=== PATIENT | male | born 1985 | race African-American/Black ===

== ENCOUNTER 2017-02-15 10:26 | Inpatient (IN) | payer OTHER ==
[2017-02-15 13:05] VITALS: BMI 19.1
--- NOTE | 2017-02-15 13:37 | HP ---
CIWA Score - CIWA Score Nausea/Vomitin Muscle Tremors: 3 Anxiety: 3 Agitation: 3 Paroxysmal Sweats: 3 Orientation: 0-Oriented Tacttile Disturbances: 1-Very Mild Itch/Numbness Auditory Disturbances: 0-None Visual Disturbances: 0-None Headache: 1-Very Mild CIWA-Ar Total Score: 17 Admission ROS S - [facility] Chief Complaint: alcohol withdrawal sx Allergies/Adverse Reactions: Allergies Allergy/AdvReac Type Severity Reaction Status Date / Time Penicillins Allergy Severe Swelling Verified 02/15/17 13:02 History of Present Illness: 32 yo m with h/o polysubstance use admitted for inpateitn detoxification because of alcohol withdrawal sx when he does not use. Exam Limitations: No Limitations - Ebola screening Have you traveled outside of the country in the last 21 days: No (N) Have you had contact with anyone from an Ebola affected area: No Have you been sick,other than usual withdrawal symptoms: No Do you have a fever: No - Review of Systems Constitutional: Diaphoresis, Night Sweats, Changes in sleep, Weakness, Unintentional Wgt. Loss EENT: reports: No Symptoms Reported Respiratory: reports: No Symptoms reported Cardiac: reports: No Symptoms Reported GI: reports: Diarrhea, Nausea, Poor Appetite, Poor Fluid Intake, Vomiting, Indigestion, Abdominal cramping : reports: No Symptoms Reported Integumentary: reports: Flushing, Sweating Neuro: reports: Headache, Numbness, Tingling, Tremors Endocrine: reports: Excessive Sweating, Flushing, Increased Thirst Hematology: reports: No Symptoms Reported Psychiatric: reports: Judgement Intact, Mood/Affect Appropiate, Orientated x3, Anxious, Depressed Other Systems: Reviewed and Negative Patient History - Patient Medical History Hx Anemia: No Hx Asthma: No Hx Chronic Obstructive Pulmonary Disease (COPD): No Hx Cancer: No Hx Cardiac Disorders: No Hx Congestive Heart Failure: No Hx Hypertension: No Hx Hypercholesterolemia: No Hx Pacemaker: No HX Cerebrovascular Accident: No Hx Seizures: No Hx Dementia: No Hx Diabetes: No Hx Gastrointestinal Disorders: No Hx Liver Disease: No Hx Genitourinary Disorders: No Hx Sexually Transmitted Disorders: No Hx Renal Disease (ESRD): No Hx Thyroid Disease: No Hx Human Immunodeficiency Virus (HIV): No Hx Hepatitis C: No Hx Depression: Yes (no meds) Hx Suicide Attempt: No (no si at this tiem) Hx Bipolar Disorder: No Hx Schizophrenia: No - Patient Surgical History Past Surgical History: No Hx Neurologic Surgery: No Hx Cataract Extraction: No Hx Cardiac Surgery: No Hx Lung Surgery: No Hx Breast Biopsy: No Hx Abdominal Surgery: No Hx Appendectomy: No Hx Cholecystectomy: No Hx Genitourinary Surgery: No Hx Section: No Hx Orthopedic Surgery: No Hx Hysterectomy: No Anesthesia Reaction: No - PPD History Previous Implant?: Yes Documented Results: Negative w/o proof Implanted On Prior [facility] Admission?: No PPD to be Administered?: Yes - Reproductive History Patient is a Female of Child Bearing Age (11 -55 yrs old): No Patient : No - Smoking Cessation Smoking history: Current every day smoker Aproximately how many cigarettes per day: 5 Cigars Per Day: 0 Hx Chewing Tobacco Use: No Initiated information on smoking cessation: No 'Breaking Loose' booklet given: 02/15/17 - Substance & Tx. History Hx Alcohol Use: Yes Hx Substance Use: Yes Substance Use Type: Alcohol, Cocaine, Marijuana Hx Substance Use Treatment: No (first admission to [facility]) - Substances Abused Alcohol Route: Oral Frequency: Daily Amount used: 2 beers, 1/2 pint of sara, 1/2 pint rum Age of first use: 18 Date of Last Use: 02/14/17 Cocaine Route: Smoking Frequency: Daily Amount used: $200 Age of first use: 17 Date of Last Use: 02/15/17 Marijuana/Hashish Route: Smoking Frequency: 1-2 times per week Amount used: $5 Age of first use: 14 Date of Last Use: 02/13/17 Family Disease History - Family Disease History Family History: Denies Admission Physical Exam S - Vital Signs Vital Signs: Vital Signs - 24 hr 02/15/17 13:04 Temperature 97.9 F Pulse Rate 80 Respiratory 18 Rate Blood Pressure 103/60 - Physical General Appearance: Yes: Nourished, Appropriately Dressed, Disheveled, Mild Distress, Thin, Tremorous, Irritable, Sweating, Anxious HEENTM: Yes: Within Normal Limits, EOMI, Hearing grossly Normal, Normal ENT Inspection, Normocephalic, Normal Voice, EMRE, Pharynx Normal Respiratory: Yes: Within Normal Limits, Chest Non-Tender, Lungs Clear, Normal Breath Sounds, No Respiratory Distress, No Accessory Muscle Use Neck: Yes: Within Normal Limits, No masses,lesions,Nodules, Supple, Trachea in good position Breast: Yes: Breast Exam Deferred Cardiology: Yes: Within Normal Limits, Regular Rhythm, Regular Rate, S1, S2 Abdominal: Yes: Within Normal Limits, Normal Bowel Sounds, Non Tender, Flat, Increased Bowel Sounds Genitourinary: Yes: Within Normal Limits Back: Yes: Within Normal Limits, Normal Inspection Musculoskeletal: Yes: Within Normal Limits, full range of Motion, Gait Steady, Pelvis Stable Extremities: Yes: Normal Capillary Refill, Normal Range of Motion, Non-Tender, Tremors Neurological: Yes: aircraft time [employer] II-XII NML intact, Fully Oriented, Alert, Motor Strength 5/5, Normal Response, Depressed Affect Integumentary: Yes: Normal Color, Warm, Diaphoresis, Moist Lymphatic: Yes: Within Normal Limits - Addiitonal Findings: withdrawal sx - Diagnostic (1) Alcohol dependence with uncomplicated withdrawal Current Visit: Yes Status: Acute (2) Cannabis dependence Current Visit: Yes Status: Acute (3) Cocaine dependence Current Visit: Yes Status: Acute (4) Dehydration Current Visit: Yes Status: Acute (5) Depression Current Visit: Yes Status: Acute (6) Nicotine dependence Current Visit: Yes Status: Acute Cleared for Admission [facility] - Detox or Rehab [facility] Level of Care: Medically Managed Detox Regimen/Protocol: Librium [facility] Breath Alcohol Content Breath Alcohol Content: 0 Urine Drug Screen - Results Drug Screen Negative: No Urine Drug Screen Results: ROSS-Cocaine
[2017-02-15] MEDS ORDERED: ACETAMINOPHEN 325 MG TABLET (FP) PO PRN (13:43)
[2017-02-15] MEDS ORDERED: MAG HYDROX/AL HYDROX/SIMETH 30 ML UNIT-DOSE CUP PO PRN (13:43)
[2017-02-15] MEDS ORDERED: MENTHOL/PHENOL 1 EACH UD MM PRN (13:43)
[2017-02-15] MEDS ORDERED: MAGNESIUM HYDROX 2400MG/30ML ORAL SUSPENSION 30 ML CUP PO PRN (13:43)
[2017-02-15] MEDS ORDERED: P-EPHED 60MG/TRIPROLIDI 2.5MG TABLET PO PRN (13:43)
[2017-02-15] MEDS ORDERED: chlordiazePOXIDE HCL 25 MG CAPSULE PO PRN (13:43)
[2017-02-15] MEDS ORDERED: IBUPROFEN 400 MG TABLET (FP) PO PRN (13:43)
[2017-02-15] MEDS ORDERED: hydrOXYzine PAMOATE 50 MG CAPSULE (FP) PO PRN (13:43)
[2017-02-15] MEDS ORDERED: NICOTINE POLACRILEX 2 MG GUM BUC PRN (13:43)
[2017-02-15] MEDS ORDERED: guaiFENesin/D-METHORPHAN HB 10 ML UNIT-DOSE CUPS PO PRN (13:43)
[2017-02-15] MEDS ORDERED: MAGNESIUM CITRATE 300 ML BOTTLE PO PRN (13:43)
[2017-02-15] MEDS ORDERED: LOPERAMIDE HCL 2 MG CAPSULE PO PRN (13:43)
[2017-02-15] MEDS: NICOTINE 14 MG/24 HOURS TOPICAL PATCH TD SCH (15:42)
[2017-02-15 19:41] LABS: URINE APPEARANCE SLCLOUDY; URINE BILIRUBIN NEGATIVE (NEGATIVE); URINE BLOOD NEGATIVE (NEGATIVE); URINE COLOR YELLOW; URINE GLUCOSE (UA) NEGATIVE (NEGATIVE); URINE KETONE NEGATIVE (NEGATIVE); URINE LEUK ESTERASE TRACE (NEGATIVE); URINE NITRITE NEGATIVE (NEGATIVE); URINE PROTEIN NEGATIVE (NEGATIVE)
[2017-02-15 20:05] LABS: URINE MUCUS RARE; URINE RBC 6 /hpf (0-3); URINE WBC 7 /hpf (3-5)
[2017-02-15] MEDS: THIAMINE HCL 100 MG TABLET (FP) PO SCH (22:19)
[2017-02-15] MEDS: chlordiazePOXIDE HCL 25 MG CAPSULE PO SCH ×2 (22:20)
[2017-02-15 22:37] LABS: URINE LEUK ESTERASE Negative (NEGATIVE)
[2017-02-16] MEDS: chlordiazePOXIDE HCL 25 MG CAPSULE PO SCH ×4 (05:19→23:48)
[2017-02-16 09:49] LABS: MCH 26.4 pg (25.7-33.7); MCHC 30.7 g/dl (32.0-35.9); MEAN CELL VOLUME 85.8 fl (80-96); PLATELET COUNT 226 K/MM3 (134-434); WHITE BLOOD COUNT 4.8 K/mm3 (4.0-10.0)
[2017-02-16] MEDS ORDERED: PRENATAL VITAMINS W/ FOLIC ACID TABLET (FP) PO SCH (10:00)
[2017-02-16 10:09] LABS: ALBUMIN 2.6 g/dl (3.4-5.0); ALK PHOS 83 U/L (45-117); ANION GAP 7 (8-16); BILIRUBIN,TOTAL 0.2 mg/dL (0.2-1.0); CALCIUM 7.9 mg/dL (8.5-10.1); CO2 25 mmol/L (21-32); CREATININE 0.9 mg/dL (0.7-1.3); GLUCOSE,RANDOM 92 mg/dL (74-106); SGPT/ALT 19 U/L (12-78); TOT PROT 6.8 g/dl (6.4-8.2)
--- NOTE | 2017-02-16 10:14 | CONSULT ---
[facility] Psychiatric Consult - Data Date of interview: 02/16/17 Admission source: [facility] Identifying data: Pt. is a 32 year old male. This is patient's first admission to [facility]. Pt. admitted to for cocaine, marijuana, and alcohol dependence. Substance Abuse History: Following information confirmed with Mr. Robles: Smoking Cessation. Smoking history: Current every day smoker. Aproximately how many cigarettes per day: 5. Cigars Per Day: 0. - Substance & Tx. History. Hx Alcohol Use: Yes. Hx Substance Use: Yes. Substance Use Type: Alcohol, Cocaine, Marijuana. Hx Substance Use Treatment: No (first admission to [facility]). Alcohol- Route: Oral Frequency: Daily. Amount used: 2 beers, 1/ 2 pint of sara, 1/2 pint rum. Age of first use: 18 Date of Last Use: 02/14. Cocaine- Route: Smoking Frequency: Daily. Amount used: $200 Age of first use: 17. Date of Last Use: 02/15/17. Marijuana/Hashish- Route: Smoking Frequency: 1-2 times per week. Amount used: $5 Age of first use: 14. Date of Last Use: 02/13/17 Medical History: Pt. denies. Psychiatric History: Pt. reports h/o one psychiatric hospitalization in 2016 at [facility] for suicidal ideation and reports being evaluated by a psychiatrist at [facility] 2 weeks ago but was discharged. Pt. unable to recall which medication he was taking while at [facility]. Pt. also denies taking any psychiatric medications. Pt. minimizing his psychiatric history. Pt. denies h/o suicide attempts. Pt. also stated to ad writer, " I do not need any psych medications. I'm not taking anything." Pt. currently denies suicidal and homicidal ideation. Physical/Sexual Abuse/Trauma History: Pt. did not answer this question. Additional Comment: Urine Drug Screen Results: ORSS-Cocaine Mental Status Exam - Mental Status Exam Alert and Oriented to: Time, Place, Person Cognitive Function: Fair Patient Appearance: Unkempt Mood: Withdrawn, Irritable Affect: Mood Congruent Patient Behavior: Guarded, Suspicious Speech Pattern: Clear Voice Loudness: Normal Thought Process: Goal Oriented Thought Disorder: Not Present Hallucinations: Denies Suicidal Ideation: Denies Homicidal Ideation: Denies Insight/Judgement: Poor Sleep: Fair Appetite: Fair Muscle strength/Tone: Normal Gait/Station: Normal Psychiatric Findings - Problem List ([place] 1, 2,3) (1) Alcohol dependence with uncomplicated withdrawal Current Visit: Yes Status: Acute (2) Cocaine dependence Current Visit: Yes Status: Chronic (3) Cannabis dependence Current Visit: Yes Status: Chronic (4) Nicotine dependence Current Visit: Yes Status: Chronic (5) Substance induced mood disorder Current Visit: No Status: Suspected - Initial Treatment Plan Initial Treatment Plan: Detox in progress. Pt. refusing psychotrophic medications. Will continue to monitor.
[2017-02-16 10:16] LABS: SGOT/AST 15 U/L (15-37)
[2017-02-16] MEDS: NICOTINE 14 MG/24 HOURS TOPICAL PATCH TD SCH (10:41)
--- NOTE | 2017-02-16 13:20 | EKG ---
Test Reason : Blood Pressure : / mmHG Vent. Rate : 071 BPM Atrial Rate : 071 BPM P-R Int : 152 ms QRS Dur : 090 ms QT Int : 414 ms P-R-T Axes : 068 076 057 degrees QTc Int : 449 ms SINUS RHYTHM WITH MARKED SINUS ARRHYTHMIA OTHERWISE NORMAL ECG NO PREVIOUS ECGS AVAILABLE Confirmed by MD Jhoan, Chan ([id number]) on 02/16/2017 1:20:42 PM Referred By: ' Confirmed By:Chan Staples MD
--- NOTE | 2017-02-16 14:23 | PN ---
S CIWA - CIWA Score Nausea/Vomitin Muscle Tremors: 3 Anxiety: 3 Agitation: 3 Paroxysmal Sweats: 3 Orientation: 0-Oriented Tacttile Disturbances: 1-Very Mild Itch/Numbness Auditory Disturbances: 0-None Visual Disturbances: 0-None Headache: 2-Mild CIWA-Ar Total Score: 18 S Progress Note (SOAP) Subjective: Nausea, sweating, tremor, chills, anxious Objective: 02/16/17 14:21 Last Vital Signs Temp Pulse Resp BP Pulse Ox 99.3 F 109 H 20 130/72 02/16/17 14:02 02/16/17 14:02 02/16/17 14:02 02/16/17 14:02 Laboratory Tests 02/15/17 02/16/17 02/16/17 19:00 06:00 06:00 WBC 4.8 RBC 4.58 Hgb 12.1 Hct 39.3 MCV 85.8 MCH 26.4 MCHC 30.7 L RDW 15.0 MPV 9.0 Sodium 140 Potassium 4.1 Chloride 108 H Carbon Dioxide 25 Anion Gap 7 L BUN 14 Creatinine 0.9 Creat Clearance w eGFR > 60 Random Glucose 92 Calcium 7.9 L Total Bilirubin 0.2 AST 15 ALT 19 Alkaline Phosphatase 83 Total Protein 6.8 Albumin 2.6 L Urine Color Yellow Urine Appearance Slcloudy Urine pH 6.0 Ur Specific [place] 1.032 Urine Protein Negative Urine Glucose (UA) Negative Urine Ketones Negative Urine Blood Negative Urine Nitrite Negative Urine Bilirubin Negative Urine Urobilinogen 2.0 Ur Leukocyte Esterase Negative Urine WBC (Auto) 7 Urine RBC (Auto) 6 Ur Epithelial Cells Rare Urine Mucus Rare RPR Titer 02/16/17 06:00 WBC RBC Hgb Hct MCV MCH MCHC RDW MPV Sodium Potassium Chloride Carbon Dioxide Anion Gap BUN Creatinine Creat Clearance w eGFR Random Glucose Calcium Total Bilirubin AST ALT Alkaline Phosphatase Total Protein Albumin Urine Color Urine Appearance Urine pH Ur Specific [place] Urine Protein Urine Glucose (UA) Urine Ketones Urine Blood Urine Nitrite Urine Bilirubin Urine Urobilinogen Ur Leukocyte Esterase Urine WBC (Auto) Urine RBC (Auto) Ur Epithelial Cells Urine Mucus RPR Titer Nonreactive Labs noted Assessment: 02/16/17 14:22 Withdrawal symptoms Plan: Continue detox Encouraged to drink lots of water
[2017-02-16 15:38] LABS: PLATELET COMMENTS NO CLUMPING NOTED
[2017-02-16] MEDS: THIAMINE HCL 100 MG TABLET (FP) PO SCH (23:48)
[2017-02-17] MEDS: chlordiazePOXIDE HCL 25 MG CAPSULE PO SCH (05:54)
--- NOTE | 2017-02-17 08:16 | PN ---
[facility] Progress Note Note: Patient has been refusing medication, does not want to complete detox, adivsed of risks of not completing as orderd, will sign out AMA. Vital Signs - 24 hr 02/16/17 02/16/17 02/16/17 10:00 14:02 17:05 Temperature 97.9 F 99.3 F 99.0 F Pulse Rate 120 H 109 H 108 H Respiratory 18 20 18 Rate Blood Pressure 121/79 130/72 131/69 02/16/17 02/17/17 02/17/17 22:38 00:30 05:39 Temperature 98.4 F 96.9 F L Pulse Rate 110 H 85 Respiratory 18 18 18 Rate Blood Pressure 132/71 117/60 Laboratory Tests 02/15/17 02/16/17 02/16/17 19:00 06:00 06:00 WBC 4.8 RBC 4.58 Hgb 12.1 Hct 39.3 MCV 85.8 MCH 26.4 MCHC 30.7 L RDW 15.0 Plt Count 226 MPV 9.0 Manual Slide Review Yes Platelet Comment No clumping noted Sodium 140 Potassium 4.1 Chloride 108 H Carbon Dioxide 25 Anion Gap 7 L BUN 14 Creatinine 0.9 Creat Clearance w eGFR > 60 Random Glucose 92 Calcium 7.9 L Total Bilirubin 0.2 AST 15 ALT 19 Alkaline Phosphatase 83 Total Protein 6.8 Albumin 2.6 L Urine Color Yellow Urine Appearance Slcloudy Urine pH 6.0 Ur Specific [place] 1.032 Urine Protein Negative Urine Glucose (UA) Negative Urine Ketones Negative Urine Blood Negative Urine Nitrite Negative Urine Bilirubin Negative Urine Urobilinogen 2.0 Ur Leukocyte Esterase Negative Urine WBC (Auto) 7 Urine RBC (Auto) 6 Ur Epithelial Cells Rare Urine Mucus Rare RPR Titer 02/16/17 06:00 WBC RBC Hgb Hct MCV MCH MCHC RDW Plt Count MPV Manual Slide Review Platelet Comment Sodium Potassium Chloride Carbon Dioxide Anion Gap BUN Creatinine Creat Clearance w eGFR Random Glucose Calcium Total Bilirubin AST ALT Alkaline Phosphatase Total Protein Albumin Urine Color Urine Appearance Urine pH Ur Specific [place] Urine Protein Urine Glucose (UA) Urine Ketones Urine Blood Urine Nitrite Urine Bilirubin Urine Urobilinogen Ur Leukocyte Esterase Urine WBC (Auto) Urine RBC (Auto) Ur Epithelial Cells Urine Mucus RPR Titer Nonreactive medically stable, discussed with patient and nurse
--- NOTE | 2017-02-17 08:20 | DS ---
[facility] Detox Discharge Summary Admission Date: 02/15/17 Discharge Date: 02/17/17 - History Present History: Alcohol Dependence, Cannabis Dependence, Cocaine Dependence Additional Comments: patient refused medication, did nto want to complete detox, risks of not completing treatment as ordered told to patient including overdose and . Patient signed out AMA Pertinent Past History: anxiety, depression, insomnia , nicotine dependence - Physical Exam Results Vital Signs: Vital Signs Temperature 96.9 F L 02/17/17 05:39 Pulse Rate 85 02/17/17 05:39 Respiratory Rate 18 02/17/17 05:39 Blood Pressure 117/60 02/17/17 05:39 O2 Sat by Pulse Oximetry (%) Laboratory Tests 02/15/17 02/16/17 02/16/17 19:00 06:00 06:00 WBC 4.8 RBC 4.58 Hgb 12.1 Hct 39.3 MCV 85.8 MCH 26.4 MCHC 30.7 L RDW 15.0 Plt Count 226 MPV 9.0 Manual Slide Review Yes Platelet Comment No clumping noted Sodium 140 Potassium 4.1 Chloride 108 H Carbon Dioxide 25 Anion Gap 7 L BUN 14 Creatinine 0.9 Creat Clearance w eGFR > 60 Random Glucose 92 Calcium 7.9 L Total Bilirubin 0.2 AST 15 ALT 19 Alkaline Phosphatase 83 Total Protein 6.8 Albumin 2.6 L Urine Color Yellow Urine Appearance Slcloudy Urine pH 6.0 Ur Specific [place] 1.032 Urine Protein Negative Urine Glucose (UA) Negative Urine Ketones Negative Urine Blood Negative Urine Nitrite Negative Urine Bilirubin Negative Urine Urobilinogen 2.0 Ur Leukocyte Esterase Negative Urine WBC (Auto) 7 Urine RBC (Auto) 6 Ur Epithelial Cells Rare Urine Mucus Rare RPR Titer 02/16/17 06:00 WBC RBC Hgb Hct MCV MCH MCHC RDW Plt Count MPV Manual Slide Review Platelet Comment Sodium Potassium Chloride Carbon Dioxide Anion Gap BUN Creatinine Creat Clearance w eGFR Random Glucose Calcium Total Bilirubin AST ALT Alkaline Phosphatase Total Protein Albumin Urine Color Urine Appearance Urine pH Ur Specific [place] Urine Protein Urine Glucose (UA) Urine Ketones Urine Blood Urine Nitrite Urine Bilirubin Urine Urobilinogen Ur Leukocyte Esterase Urine WBC (Auto) Urine RBC (Auto) Ur Epithelial Cells Urine Mucus RPR Titer Nonreactive labs reviewed with patient, patietn needs to follow up with PCP for medical care and repeat labwork, hypoalbuminemi/malnutirition 2/2 substance use Pertinent Admission Physical Exam Findings: withdrawal sx - Treatment Hospital Course: Detox Protocol Followed Patient has Accepted a Rehab Referral to: No - Medication Discharge Medications: Ambulatory Orders NK [No Known Home Medication] 02/15/17 - Diagnosis (1) Alcohol dependence with uncomplicated withdrawal Current Visit: Yes Status: Acute (2) Cannabis dependence Current Visit: Yes Status: Chronic (3) Cocaine dependence Current Visit: Yes Status: Chronic (4) Dehydration Current Visit: Yes Status: Acute (5) Depression Current Visit: Yes Status: Chronic (6) Nicotine dependence Current Visit: Yes Status: Chronic (7) Substance induced mood disorder Current Visit: No Status: Suspected - AMA Did Patient Leave Against Medical Advice: Yes
[2017-02-17 10:02] VITALS: BP 117/64; PULSE 118; TEMP 98.4
[2017-02-17] MEDS ORDERED: chlordiazePOXIDE 5 MG CAPSULE PO SCH (17:00)
[2017-02-18] MEDS ORDERED: chlordiazePOXIDE HCL 10 MG CAPSULE PO SCH (17:00)
== END 2017-02-17 09:48 | disposition left against medical advice (07) | DRG 770 ==
LOC: YASAS 10:26 → Y6N 13:39
PROVIDERS: ADMIT Internal Medicine; ATTEND Internal Medicine
PROC: HZ2ZZZZ Detoxification Services for Substance Abuse Treatment (ICD-10-PCS; principal; 2017-02-15)
DX: F10.230 Alcohol dependence with withdrawal, uncomplicated (principal); F14.20 Cocaine dependence, uncomplicated; F12.20 Cannabis dependence, uncomplicated; F17.210 Nicotine dependence, cigarettes, uncomplicated; F32.9 Major depressive disorder, single episode, unspecified; F19.24 Other psychoactive substance dependence with psychoactive substance-induced mood disorder; E86.0 Dehydration; Z88.0 Allergy status to penicillin; Z59.0 Homelessness
CPT/HCPCS: 36415; 80053; 81003; 81015; 85027; 86593; 93005; 93010